=== PATIENT | female | born 1995 | race Caucasian/White ===

== ENCOUNTER 2024-09-21 08:40 | Emergency (ER) | payer MEDICAID ==
[~2024-09-21] VITALS: Ht 154.9 cm; Wt 59.7 kg
[2024-09-21 08:45] VITALS: TEMP 98
[2024-09-21] MEDS: acetaminophen 325mg tablet PO ONE (09:34)
[2024-09-21] MEDS: normal saline 1000ml 1,000 ML IV ONE (09:35)
[2024-09-21 10:30] LABS: ALBUMIN 3.9 G/DL (3.4-5.0); ANION GAP 10 (8-16); BLOOD UREA NITROGEN 6 MG/DL (7-18); BUN/CREATININE RATIO 12.2 (10.0-20.0); CHLORIDE 106 MMOL/L (99-107); CREATININE 0.49 MG/DL (0.40-0.90); GLUCOSE 76 MG/DL (70-104); SODIUM 142 MMOL/L (135-145); TOTAL CARBON DIOXIDE 26.1 MMOL/L (24-32); eCRCL 128 ML/MIN; eGFR > 90 ML/MIN
[2024-09-21 10:36] LABS: POTASSIUM 2.9 MMOL/L (3.5-5.1)
[2024-09-21] MEDS: potassium bicarbonate/cit acid 25mEq tablet.effervescent PO ONE (11:15)
[2024-09-21 11:17] LABS: HCG SERUM QL NEGATIVE
[2024-09-21] MEDS ORDERED: iohexol 350MG/ML 100ml bottle IV ONE (11:30)
[2024-09-21] MEDS: ondansetron/PF 4mg/2ml inj IV ONE (11:56)
[2024-09-21 12:53] VITALS: BP 136/86; PULSE 86; RESP 16; O2SAT 98
[2024-09-21] MEDS ORDERED: potassium bicarbonate/cit acid 25mEq tablet.effervescent PO SCH (16:00)
== END 2024-09-21 12:54 | disposition home or self-care (01) ==
LOC: ER 08:41
DX: S00.83XA Contusion of other part of head, initial encounter (principal); T71.9XXA Asphyxiation due to unspecified cause, initial encounter; Z88.5 Allergy status to narcotic agent; Y04.0XXA Assault by unarmed brawl or fight, initial encounter; Y93.89 Activity, other specified; Y92.89 Other specified places as the place of occurrence of the external cause; Y99.8 Other external cause status
CPT/HCPCS: 36415; 70498; 80048; 84703; 96361; 96374; 99285; J2405; J7030; Q9967

== ENCOUNTER 2025-05-18 12:48 | Emergency (ER) | payer MEDICAID ==
[~2025-05-18] VITALS: Ht 154.9 cm; Wt 61.8 kg
[2025-05-18 13:04] VITALS: BP 145/103; PULSE 100; RESP 16; O2SAT 100
--- NOTE | 2025-05-18 13:23 | Physician Documentation ---
History of Present Illness ~ Chief Complaint: Medical Clearance Stated Complaint: MED CLEARANCE Time Seen by MD: 13:06 Source: patient Mode of Arrival: Ambulatory Exam Limitations: no limitations HPI 29-year-old female requesting medical clearance for rehab. Patient wants to go into [facility] tomorrow. Patient is not drinking heavily but did have a couple of shots and a half [employer] hard lemonade but is also using meth. Patient has no acute concerns Tetanus within 5 years?: No Medication Reconciliation Allergies: Coded Allergies: codeine (Unverified Allergy, Unknown, 05/18/25) Past Medical History Past Medical History: No Pertinent History Review of Systems All Other Systems at this time: Reviewed and Negative Physical Exam Vital Signs: RN Vital Signs have been reviewed: Yes, Temperature: 97.5, Source: Temporal, Heart Rate: 100, Respiratory Rate: 16, BP: 145/103, Pulse Oximetry: 100, Weight: 61.800 Oxygen Flow Rate: 0 Physical Exam General: Alert, no apparent distress. HEENT: moist mucous membranes. Neck: Full range of motion. Respiratory: No respiratory distress speaking in full sentences Chest: No accessory muscle use. Cardiovascular: Appears well perfused Neurologic: Oriented x4. Psychiatric: Normal mood and affect. Skin: Normal color, warm and dry. No edema, no ecchymosis. Progress Results/Orders Results/Orders Vital Signs 05/18/25 13:04 Temp 97.5 Pulse 100 Resp 16 B/P (MAP) 145/103 Pulse Ox 100 O2 Flow Rate 0 Medical Decision Making Findings Patient requesting medical clearance for [facility] for alcohol and meth use. Vital signs reassuring Departure Time of Disposition: 13:24 Disposition: 01 HOME / SELF CARE / HOMELESS Impression: Primary Impression: General medical exam Condition: Stable Discharge Instructions: Medical Screening Exam Additional Instructions: Patient is medically cleared for [facility] treatment program Referrals: NO PRIMARY CARE PROVIDER (PCP) Education Educated: Patient Educated regarding: diagnosis, treatment, need for follow up Signature Scribe Signature: No scribe Attestation: The note accurately reflects work and decisions made by me.Perlita Noe - STEFANY 05/18/25 13:25 PERLITA NOE NP May 18, 2025 13:23
[2025-05-18 13:45] VITALS: TEMP 97.5
== END 2025-05-18 13:47 | disposition home or self-care (01) ==
LOC: ER 12:49
DX: Z00.00 Encounter for general adult medical examination without abnormal findings (principal); F15.90 Other stimulant use, unspecified, uncomplicated; Z88.5 Allergy status to narcotic agent
CPT/HCPCS: 99282